=== PATIENT | female | born 1995 | race Caucasian/White ===

== ENCOUNTER → 2021-11-13 | Outpatient (CLI) | payer BC | LOC: DIA.ED 09:20 | DX: O24.419 Gestational diabetes mellitus in pregnancy, unspecified control (principal) | CPT/HCPCS: G0108 ==

== ENCOUNTER 2022-01-09 05:32 | Inpatient (IN) | payer BC ==
[2022-01-09] VITALS (22 sets, daily range): BP systolic 114–146; BP diastolic 63–88; PULSE 55–99; TEMP 97.8–98.4
--- NOTE | 2022-01-09 05:40 | NUR ---
PT TO UNIT AMBULATORY WITH SPOUSE WITH CONCERNS OF SROM AT 0440 THIS MORNING. AMNIOSWAB +, CLEAR FLUID NOTED AT PERINEUM. SVE OF 2-3/90/-2. PT STATES SHE IS A REPEAT C/S BABY IS MEASURING LARGE OF 36 WEEK US. CONTRACTIONS EVERY 2-3 MINUTES. FHT'S WITH MODERATE VARIABILITY, NO ACCELS OR DECELS NOTED. VS WNL. WILL CALL PHYSICIAN FOR ORDERS.
[2022-01-09] MEDS ORDERED: PRENATAL TABLET PO (06:07)
[2022-01-09] MEDS ORDERED: NATURAL IRON65 MG PO (06:08)
[2022-01-09] MEDS ORDERED: ZOLOFT 50MG50 MG PO (06:08)
--- NOTE | 2022-01-09 06:20 | NUR ---
0620 - RN ASSUMING CARE OF PATIENT. REPORT RECEIVED. 0630 - PLAN OF CARE REVIEWED. QUESTIONS ANSWERED. PATIENT AGREEABLE TO PLAN. EDUCATION PACKET PROVIDED. 0635 - IV STARTED. LABS DRAWN ORDERED. LR INITIATED ORDERED. 0640 - CONSENTS REVIEWED AND SIGNED. CARE ONGOING.
[2022-01-09 07:12] LABS: BASO % 0.3 % (0.0-2.0); EOS # 0.1 K/mm3 (0.0-0.7); EOS % 0.8 % (0.0-4.0); GRAN # 3.8 K/mm3 (1.4-6.5); GRAN % 63.9 % (42.2-75.2); HEMOGLOBIN 11.5 g/dl (12.5-16.0); LYMPH # 1.7 K/mm3 (1.2-3.4); LYMPH % 28.5 % (20.0-51.0); MEAN CELL VOLUME 86 fl (80.0-100.0); MEAN CORPUSCULAR HEMOGLOBIN 28 pg (27-31); MEAN CORPUSCULAR HGB CONC 32 g/dl (33.0-37.0); MEAN PLATELET VOLUME 12.6 fl (7.4-10.4); MONO # 0.3 K/mm3 (0.1-0.6); MONO % 5.5 % (1.7-9.3); PLATELET COUNT 134 K/mm3 (130-400); RED BLOOD COUNT 4.12 M/mm3 (4.10-5.30); REDCELL DISTRIBUTION WIDTH-CV 18.7 % (11.5-14.5)
[2022-01-09 07:37] LABS: HEMATOCRIT 35.6 % (37.0-47.0)
[2022-01-09 08:44] LABS: TRICYCLIC ANTIDEPRESS URINE NEGATIVE
[2022-01-09] MEDS ORDERED: MOTRIN 800800 MG/TAB PO (09:49)
[2022-01-09] MEDS ORDERED: PERCOCET 325 MG1 TA2 PO (09:49)
[2022-01-10 01:00] VITALS: BP 100/69; PULSE 76; TEMP 98.2
[2022-01-10 07:20] VITALS: BP 112/66; PULSE 68; TEMP 97.1
--- NOTE | 2022-01-10 09:09 | NUR ---
Initial visit attempt; Family out of room, Home Health Administrator left card of congratulations and God's blessings for the of their son and information regarding the availability of spiritual care at [facility].
[2022-01-10 16:48] VITALS: BP 114/68; PULSE 64; TEMP 98.1
[2022-01-10 20:40] VITALS: BP 134/71; PULSE 71; TEMP 97.8
[2022-01-11 07:30] VITALS: BP 134/77; PULSE 81; TEMP 97.5
[2022-01-11 17:00] VITALS: BP 149/81; PULSE 73; TEMP 99
--- NOTE | 2022-01-11 18:30 | NUR ---
Report recieved. Sitting on the side of the bed. Updated whiteboard and reviewed POC. Denied questions or concerns at this time.
[2022-01-11 19:40] VITALS: BP 131/76; PULSE 77; TEMP 97.9
[2022-01-12 09:15] VITALS: BP 126/73; PULSE 85; TEMP 98
--- NOTE | 2022-01-12 12:45 | NUR ---
Discharge instructions and follow up care reviewed with pt and at the bedside. Both verbalized an understanding, agreed with the plan and states no questions or concerns at this time.
== END 2022-01-12 13:00 | disposition home or self-care (01) | DRG 788 ==
LOC: LDRO 05:32 → OB 06:10 → LDR 06:10 → OB 16:29
PROVIDERS: Obstetrics & Gynecology; ADMIT Obstetrics & Gynecology
PROC: 10D00Z1 Extraction of Products of Conception, Low, Open Approach (ICD-10-PCS; principal; 2022-01-09)
DX: O34.211 Maternal care for low transverse scar from previous cesarean delivery (principal); O24.420 Gestational diabetes mellitus in childbirth, diet controlled; O99.344 Other mental disorders complicating childbirth; F32.A Depression, unspecified; F41.9 Anxiety disorder, unspecified; O99.334 Smoking (tobacco) complicating childbirth; O99.214 Obesity complicating childbirth; F17.200 Nicotine dependence, unspecified, uncomplicated; O36.5930 Maternal care for other known or suspected poor fetal growth, third trimester, not applicable or unspecified; Z3A.37 37 weeks gestation of pregnancy; Z37.0 Single live birth
CPT/HCPCS: J0690; J1885; J2370; J2405; J2590; J7120